=== PATIENT | male | born 1990 | race African-American/Black ===

== ENCOUNTER 2024-12-24 13:57 | Emergency (ER) | payer OTHER ==
[~2024-12-24] VITALS: Ht 177.8 cm; Wt 72.8 kg
[2024-12-24 14:37] LABS: PLATELET COUNT, AUTOMATED 265 10^3/uL (150-450)
[2024-12-24 15:13] LABS: ALT/SGPT 26 U/L (7.0-40); AST/SGOT 18 U/L (<34); CALCIUM LEVEL 10.0 MG/DL (8.5-10.1); CARBON DIOXIDE LEVEL 28 MMOL/L (20-31); CHLORIDE LEVEL 104 MMOL/L (98-107); CREATININE FOR GFR 1.09 MG/DL (0.70-1.30); GLOMERULAR FILTRATION RATE > 90.0 (>60); POTASSIUM SERUM 4.0 MMOL/L (3.5-5.1); SALICYLATE LEVEL < 3.0 MG/DL (<30); SODIUM LEVEL 143 MMOL/L (136-145)
[2024-12-24 15:15] LABS: ETHYL ALCOHOL (ETHANOL) < 0.003 % (0.000-0.010)
[2024-12-24 16:24] LABS: AMPHETAMINES LEVEL URINE NEGATIVE (NEGATIVE); BARBITURATES URINE NEGATIVE (NEGATIVE); BENZODIAZEPINES URINE NEGATIVE (NEGATIVE); CANNABINOIDS URINE NEGATIVE (NEGATIVE); COCAINE METABOLITE URINE NEGATIVE (NEGATIVE); METHADONE URINE NEGATIVE (NEGATIVE); OPIATES URINE NEGATIVE (NEGATIVE); PHENCYCLIDINE URINE NEGATIVE (NEGATIVE)
[2024-12-24 17:23] VITALS: BP 133/85; TEMP 97.8; O2SAT 100
== END 2024-12-24 17:38 | disposition home or self-care (01) ==
LOC: M ED 13:57
DX: F43.0 Acute stress reaction (principal); Z63.0 Problems in relationship with spouse or partner

== ENCOUNTER → 2025-02-26 | Outpatient (CLI) | payer OTHER ==
[2025-03-01 12:43] LABS: HSV 1 IGG TYPE SPECIFIC 46.90 index (<0.90)
== END ==
LOC: M WUC 13:58
PROVIDERS: ATTEND Student in an Organized Health Care Education/Training Program
DX: R30.0 Dysuria (principal)